=== PATIENT | male | born 1970 | race African-American/Black ===

== ENCOUNTER 2020-07-08 19:18 | Emergency (ER) | payer SELFPAY ==
--- NOTE | 2020-07-08 19:46 | EDM.PDOC ---
ED HPI GENERAL MEDICAL PROBLEM - General Chief Complaint: Lower Extremity Injury/Pain Stated Complaint: LEG Time Seen by Provider: 07/08/20 19:40 Source of Information: Reports: Patient History Limitations: Reports: No Limitations - History of Present Illness INITIAL COMMENTS - FREE TEXT/NARRATIVE: 50-year-old male who states about a week ago he was lifting a metal bar and it s lipped and fell and struck his right medial lower leg. He had a little bit of soreness in the area but he felt a bump. The soreness has gone away and he still feels a little bit of a bump in this area. Yesterday he began to have some itching along his right lateral lower leg and he states that it felt like he had a bug bite in the area. When he awoke this morning he noted that his entire right lower leg was swollen compared to the left and it seemed to be somewhat warm along the lateral aspect of his right lower leg and some redness in this area as well. It was still itchy. There was no pain in this area. In fact, he reports he has no pain and would rate his pain as 0/10. No cough. No difficulty breathing. No chest pain. He has normal sensation in his right foot. He has no thigh or groin swelling or pain. He has had no fevers or chills. No nausea or vomiting. He states that he feels completely well otherwise. There are no other associated signs or symptoms. There are no other modifying factors. Onset: Other (Guajardo times. Swelling began this morning.) Duration: Getting Worse Location: Reports: Lower Extremity, Right Quality: Reports: Other (Pain) Improves with: Reports: None Worsens with: Reports: None Associated Symptoms: Reports: No Other Symptoms (Other than as above) Treatments MAINTENANCE JOB TITLES: Reports: Other (see below) (Nothing.) - Related Data Allergies Allergy/AdvReac Type Severity Reaction Status Date / Time peanut Allergy Anaphylactic Verified 07/08/20 19:33 Shock Home Meds: Home Meds Cetirizine [ZyrTEC] 10 mg PO DAILY 07/08/20 [History] Doxycycline [Vibra-Tabs] 100 mg PO BID 10 Days #20 tablet 07/08/20 [Rx] Past Medical History Respiratory History: Reports: Sleep Apnea (Uses CPAP) Immunologic History: Reports: Other (See Below) (Environmental allergies) - Past Surgical History Other Surgical History Comment: No previous surgeries. Social & Family History - Tobacco Use Tobacco Use Status *Q: Current Every Day Tobacco User - Alcohol Use Alcohol Use Frequency: Weekly (Drinks alcohol about 3 times a week.) - Living Situation & Occupation Living situation: Reports: Occupation: Employed (Works at [employer]) Review of Systems - Review of Systems Review Of Systems: See Below Constitutional: Reports: No Symptoms Eyes: Reports: No Symptoms Ears: Reports: No Symptoms Nose: Reports: No Symptoms Mouth/Throat: Reports: No Symptoms Respiratory: Reports: No Symptoms Cardiovascular: Reports: No Symptoms GI/Abdominal: Reports: No Symptoms Genitourinary: Reports: No Symptoms Musculoskeletal: Reports: Other (Swelling in right lower leg.) Skin: Reports: Pruritis (Along the lateral right lower leg.), Erythema (With increased warmth along the right lateral lower leg.) Neurological: Reports: No Symptoms Psychiatric: Reports: No Symptoms ED EXAM, GENERAL - Physical Exam Exam: See Below Exam Limited By: No Limitations General Appearance: Alert, WD/WN, No Apparent Distress Eye Exam: Bilateral Eye: EOMI, Normal Inspection Ears: Normal External Exam, Hearing Grossly Normal Ear Exam: Bilateral Ear: Auricle Normal Nose: Normal Inspection, Normal Mucosa, No Blood Throat/Mouth: Normal Inspection, Normal Lips, Normal Oropharynx, Normal Voice, No Airway Compromise Head: Atraumatic, Normocephalic Neck: Normal Inspection, Supple, Non-Tender, Full Range of Motion Respiratory/Chest: No Respiratory Distress, Normal Breath Sounds, No Accessory Muscle Use, Chest Non-Tender Cardiovascular: Normal Peripheral Pulses, Regular Rate, Rhythm, No Murmur Peripheral Pulses: 2+: Dorsalis Pedis (L), Dorsalis Pedis (R) GI/Abdominal: Normal Bowel Sounds, Soft, Non-Tender, No Mass Back Exam: Normal Inspection Extremities: Normal Range of Motion, Non-Tender, Normal Capillary Refill, Pedal Edema (Edema in right lower leg.), Increased Warmth (Over right lateral lower leg.), Other (Bump over right medial lower leg. No crepitus or bony deformity noted. No tenderness.) Neurological: Alert, Oriented, CN II-XII Intact, Normal Cognition, No Motor/Sensory Deficits Psychiatric: Normal Affect Skin Exam: Warm, Dry, Intact, No Rash, Erythema (Increased warmth and erythema along right lateral lower leg as above.), Increased Warmth Lymphatic: No Adenopathy Course - Vital Signs Last Recorded V/S: Last Vital Signs Temp 37.1 C 07/08/20 19:18 Pulse 76 07/08/20 19:18 Resp 17 07/08/20 19:18 BP 137/83 07/08/20 19:18 Pulse Ox 100 07/08/20 19:18 - Orders/Labs/Meds Orders: Active Orders 24 hr Category Date Time Status Tibia Fibula Rt [CR] Stat Exams 07/08/20 19:58 Taken Labs: Laboratory Tests 07/08/20 Range/Units 20:10 D-Dimer, Quantitative 0.55 (0.0-0.59) mg/LFEU - Radiology Interpretation Free Text/Narrative:: Right tib-fib x-ray shows no fracture - Re-Assessments/Exams Free Text/Narrative Re-Assessment/Exam: 07/08/20 20:35: The patient's d-dimer was normal. This makes a DVT very unlikely The X-ray of his right lower leg is normal as well. He does have some redness and increased warmth along the oral aspect of his right lower leg. This could represent an allergic reaction to a possible insect bite but it could also be a cellulitis. He does not appear toxic at this point. I am going to place him on antibiotics to cover potential infection (doxycycline 100 mg). I will also have him take Benadryl as this could be part allergic reaction. He will need to stay off of his as much as possible for the next few days and elevate his right leg. His and reasons for return to the emergency department were discussed with the patient probably was in the emergency department and were detailed to the patient's discharge instructions. Departure - Departure Time of Disposition: 20:45 Disposition: Home, Self-Care 01 Condition: Good Clinical Impression: Cellulitis of right lower leg Contusion of lower leg, right Qualifiers: Encounter type: initial encounter Qualified Code(s): S80.11XA - Contusion of r ight lower leg, initial encounter - Discharge Information Prescriptions: Doxycycline [Vibra-Tabs] 100 mg PO BID 10 Days #20 tablet Instructions: Cellulitis, Adult, [id number] Referrals: PCP,None [Primary Care Provider] - Forms: ED Department Discharge, ED Return to Work/School Form Additional Instructions: Your x-ray was normal. I saw no evidence of fracture. The blood clot screening test was normal as well. This makes a blood clot in your leg very unlikely. You appear to have an infection of the skin over your right lateral lower leg. The redness and the increased warmth associated with the swelling support this as the cause. I am giving you off work for the next 2 days. You should elevate your right leg and try to stay off of your right leg as much as possible over the next 2 days. Medication as prescribed (doxycycline 100 mg). You should also take Benadryl 50 mg by mouth every 6 hours as needed for itching and for possible allergic reaction component to this. You can also take Tylenol 1000 mg by mouth every 6 hours as needed and ibuprofen 600-800 mg by mouth every 6-8 hours as needed. Increase your fluid intake. Back to the emergency department for spreading redness, fever, severe weakness, chest pain or shortness of breath or any other concerning sign or symptom. Sepsis Event Note (ED) - Evaluation Sepsis Screening Result: No Definite Risk - Focused Exam Vital Signs: Vital Signs Temp Pulse Resp BP Pulse Ox 07/08/20 19:18 37.1 C 76 17 137/83 100 - My Orders Last 24 Hours: My Active Orders 07/08/20 19:58 Tibia Fibula Rt [CR] Stat - Assessment/Plan Last 24 Hours: My Active Orders 07/08/20 19:58 Tibia Fibula Rt [CR] Stat
[2020-07-08] MEDS ORDERED: Doxycycline 100 MG Tab PO ONE (20:50)
--- NOTE | 2020-07-11 12:13 | CR ---
RIGHT TIBI/FIB 6537 INDICATION: Swelling for the last 24 hours. Patient stated no trama history. Four images of the right tibia and fibula were obtained 07/08/2020 and revealed no significant appearing bone or joint abnormality. If occult bony abnormality is suspected clinically, nuclear bone imaging may be helpful for further evaluation. [facility]
== END 2020-07-08 21:03 | disposition home or self-care (01) ==
LOC: FB.ED 19:18
DX: S80.11XA Contusion of right lower leg, initial encounter (principal); L03.115 Cellulitis of right lower limb; Z72.0 Tobacco use; Z91.010 Allergy to peanuts; W01.10XA Fall on same level from slipping, tripping and stumbling with subsequent striking against unspecified object, initial encounter
CPT/HCPCS: 36415; 73590-RT; 85379; 99283-25; A9270-GY

== ENCOUNTER 2021-06-05 18:33 | Emergency (ER) | payer OTHER ==
[2021-06-05] MEDS ORDERED: Acetaminophen/HYDROcodone 325-5 MG Tab PO ONE (18:34)
[2021-06-05] MEDS: HYDROmorphone 2 MG/ML SDV IM ONE (18:43)
[2021-06-05] MEDS: Diphtheria,Pertussis(Acell),Tetanus Vaccine 0.5 ML Syringe IM ONE (18:44)
[2021-06-05] MEDS: Cephalexin 500 MG Cap PO ONE (18:44)
[2021-06-05] MEDS: Bupivacaine 0.5% 10 ML SDV INJECT ONE (18:59)
[2021-06-05] MEDS: Bacitracin Oint 1 GM U/D Packet TOP ONE (19:50)
== END 2021-06-05 20:05 | disposition home or self-care (01) ==
LOC: FB.ED 18:33
DX: S68.110A Complete traumatic metacarpophalangeal amputation of right index finger, initial encounter (principal); Z91.010 Allergy to peanuts; Z23 Encounter for immunization; W26.8XXA Contact with other sharp object(s), not elsewhere classified, initial encounter; Y99.0 Civilian activity done for income or pay
CPT/HCPCS: 12001; 90471; 90715; 96372; 99282; 99283-25; A9270-GY; J1170; J3490

== ENCOUNTER 2023-04-09 21:31 | Emergency (ER) | payer BC ==
[2023-04-09 22:13] LABS: BASOPHILS PERCENT AUTO 0.6 % (0.3-3.8); EOSINOPHILS ABSOLUTE AUTO 1.5 x10-3/uL (0.0-0.6); EOSINOPHILS PERCENT AUTO 18.3 % (0.1-6.8); HEMATOCRIT 42.3 % (38.3-50.1); HEMOGLOBIN 13.7 g/dL (12.9-17.7); MEAN CORPUSCULAR HEMOGLOBIN 25.5 pg (27.0-33.3); MEAN CORPUSCULAR HGB CONC 32.3 g/dL (28.7-35.3); MONOCYTES ABSOLUTE AUTO 0.4 x10-3/uL (0.0-1.2); MONOCYTES PERCENT AUTO 4.7 % (5.5-15.2); NEUTROPHILS ABSOLUTE AUTO 3.2 x10-3/uL (1.7-6.9); NEUTROPHILS PERCENT AUTO 39.4 % (40.3-71.8); PLATELET COUNT,PLT 135 x10(3)uL (117-477); RED BLOOD CELL COUNT 5.36 x10(6)uL (3.90-5.90); WHITE BLOOD CELL COUNT,WBC 8.2 x10-3/uL (3.2-10.1)
[2023-04-09 22:17] LABS: BLOOD UREA NITROGEN,BUN 16 mg/dL (7-18); BUN/CREATININE RATIO 13.3 (9-20); CALCIUM 9.2 mg/dL (8.6-10.2); CARBON DIOXIDE,CO2 31 mmol/L (21-32); CHLORIDE,CL 102 mmol/L (100-110); CREATININE 1.2 mg/dL (0.70-1.30); EST CRCL DRUG DOSING (CG) 84.67 mL/min; ESTIMATED GFR 73 mL/min (>60); GLUCOSE RANDOM 162 mg/dL (80-116); POTASSIUM,K 4.3 mmol/L (3.5-5.3); SODIUM,NA 139 mmol/L (135-145)
[2023-04-09 22:23] LABS: A/G RATIO 1.1; ALANINE AMINOTRANSFERASE,ALT 32 U/L (12-36); ALBUMIN 3.6 g/dL (3.5-5.2); ALKALINE PHOSPHATASE 74 IU/L (56-112); ASPARTATE AMNIOTRANSFERASE,AST 17 IU/L (5-25); BILIRUBIN TOTAL 0.3 mg/dL (0.1-1.3); PROTEIN TOTAL,TP 6.8 g/dL (6.0-8.0)
== END 2023-04-09 23:08 | disposition home or self-care (01) ==
LOC: FB.ED 21:31
DX: R55 Syncope and collapse (principal); I10 Essential (primary) hypertension; J44.9 Chronic obstructive pulmonary disease, unspecified; Z91.010 Allergy to peanuts
CPT/HCPCS: 36415; 80053; 85025; 93005; 93010; 99284